=== PATIENT | female | born 1935 | race Caucasian/White ===

== ENCOUNTER 2019-10-10 09:03 | Outpatient (CLI) | payer MEDICARE, MEDICAID ==
--- NOTE | 2019-10-10 10:50 | MRI ---
MRI LUMBAR SPINE NONCONTRAST: DATE: 10/10/2019 HISTORY: 84-year-old female with chronic low back pain and bilateral lumbar radiculopathy, including left scia zofia. COMPARISON: None available FINDINGS: For the purposes of this report, it will be assumed that there are 5 lumbar-type vertebrae. Vertebral body heights are maintained. No major bone marrow signal abnormality identified. Conus medullaris terminates at L1. There is levos coliosis. This results in asymmetrically greater degree of degenerative changes on the concave sides of the curvature, which would be on the right at L2-3 and L3-4, and on the left side of the cou nter curvature at L4-5. T12-L1:Mild disc bulge. Disc space maintained. No high-grade neural foraminal stenosis or high-grade central stenosis. L1-2:Disc space maintained. Diffuse disc bulge. No high-grade neural foraminal stenosis. Mild ligamen rachele flavum thickening. Mild central stenosis. L2-3:Prominent diffuse disc bulge. Moderate to severe right neural foraminal stenosis. Mild to modera te left neural foraminal stenosis. Moderate ligamentum flavum thickening. Moderate to severe central spinal canal stenosis. Right-sided disc space narrowing. L3-4:Severe right facet DJD. Moderate to severe left facet DJD. These result in mild grade 1 anteroli sthesis of L3 on L4. Right-sided disc space narrowing. Large diffuse disc bulge, asymmetrically larger on the right side than left. Severe central spinal canal stenosis. Obliteration of CSF signal. Crowding of cauda equina. 1 x 1 x 0.5 cm right-sided synovial cyst further exacerbates the already very severely stenotic right lateral recess, contributing to right L4 nerve root compression. L4-5:Mild to moderate right facet DJD. Severe left facet DJD. Grade 1 anterolisthesis of L4 on L5. Le ft-sided disc space narrowing. Diffuse disc bulge. No right neural foraminal stenosis. Moderate left neural foraminal stenosis. Severe right lateral recess stenosis with possible impingement on rig ht L5 nerve root. Moderate central spinal canal stenosis. L5-S1:Disc space maintained. Ankylosis of dysplastically large left L5 transverse process with left S 1 sacral ala. The status of the right L5 transverse process is unknown because the sagittal images do not reach far laterally enough on the right. No central or neural foraminal stenosis. Hypoplastic bilateral facet joints. IMPRESSION: 1) lumbosacral transitional vertebra. This is at least type III a on the left side. Status on the rig ht side is unknown. 2) high-grade lumbar spondylosis, with multilevel high-grade degenerative disc disease and multilevel high-grade facet osteoarthrosis. 3) levoscoliosis. 4) multilevel high-grade neural foraminal stenosis, worst on the right at L3-4 and on the left at L4- 5. 5) severe central spinal canal stenosis at L3-4. 6) grade 1 spondylolisthesis at L3-4 and L4-5 due to the facet osteoarthrosis.
== END 2019-10-10 09:04 | disposition home or self-care (01) ==
LOC: BICMRI 09:03
PROVIDERS: ATTEND Family Medicine
DX: M54.32 Sciatica, left side (principal); M54.31 Sciatica, right side; M51.36 Other intervertebral disc degeneration, lumbar region; M48.061 Spinal stenosis, lumbar region without neurogenic claudication; M43.16 Spondylolisthesis, lumbar region; M47.816 Spondylosis without myelopathy or radiculopathy, lumbar region; M41.9 Scoliosis, unspecified
CPT/HCPCS: 72148

== ENCOUNTER 2019-12-27 10:03 | Inpatient (IN) | payer MEDICARE, MEDICAID ==
[2019-12-26 10:10] VITALS: BMI 20.2
[~2019-12-27 10:03] MED LIST: Dexamethasone 20 MG/5 ML VIAL ONE; Esmolol 100 MG/10 ML VIAL ONE; Glycopyrrolate 0.2 MG/ML 5 ML SYRINGE ONE; Lidocaine 1% PF 5 ML VIAL ONE; Ondansetron PF 4 MG/2 ML Vial ONE; PHENYLEPHRINE-NS 100 MCG/ML 10 ML SYRINGE ONE; PROPOFOL 200 MG/20 ML VIAL ONE; Rocuronium Bromide 10 MG/ML (10ML VIAL) ONE; ePHEDrine/0.9% NaCl/PF SYRINGE 50 mg/10 ml ONE
[2019-12-27 11:51] LABS: Hemoglobin 12.7 g/dL (12.0-16.0); Mean Corpuscular HGB CONC 32.4 g/dL (32.0-36.0); Mean Corpuscular Hemoglobin 30.7 pg (27.0-31.0); Mean Corpuscular Volume 94.7 fL (78.0-98.0); Mean Platelet Volume 6.6 fL (7.4-10.4); Platelet Count 235 thou/uL (130-400); RBC Distribution Width 11.6 % (11.5-14.5); Red Blood Cell (RBC) Count 4.13 mill/uL (4.20-5.40); White Blood Cell (WBC) Count 8.6 thou/uL (4.8-10.8)
[2019-12-27 11:54] LABS: PTT 27.3 SEC (22.9-36.1); Prothrombin Time 12.9 SEC (12.0-14.7)
[2019-12-27 12:11] LABS: Anion Gap 11 mmol/L (10-20); BUN (Urea Nitrogen) 21 mg/dL (9.8-20.1); Calc. Creatinine Clearance 44 mL/min (70-130); Calcium 9.3 mg/dL (7.8-10.44); Carbon Dioxide 27 mmol/L (23-31); Chloride 99 mmol/L (98-107); Estimated GFR-MDRD 71; Glucose 106 mg/dL (83-110); Potassium 3.8 mmol/L (3.5-5.1); Sodium 133 mmol/L (136-145)
[2019-12-27] MEDS ORDERED: Fentanyl 100 MCG/2 ML VIAL ONE ×3 (12:43→16:28)
[2019-12-27] MEDS ORDERED: Thrombin 5000 UNITS/5 ML VIAL ONE (12:45)
[2019-12-27] MEDS ORDERED: Sodium Chloride 0.9% 10 ML ONE (12:45)
[2019-12-27] MEDS ORDERED: Phenylephrine HCL 10 MG/ML VIAL ONE (12:47)
[2019-12-27] MEDS ORDERED: Morphine Sulfate 2 MG/ML SYRINGE SLOW IVP PRN (15:21)
[2019-12-27] MEDS ORDERED: Promethazine HCl 25 MG/ML VIAL IM PRN (15:21)
[2019-12-27] MEDS ORDERED: Ondansetron HCl/PF 4 MG/2 ML Vial IVP PRN (15:21)
[2019-12-27] MEDS ORDERED: PACU-Morphine 4MG/ML VIAL SLOW IVP PRN (15:21)
[2019-12-27] MEDS ORDERED: Bisacodyl 10 MG SUPP PR PRN (15:30)
[2019-12-27] MEDS ORDERED: Ondansetron PF 4 MG/2 ML Vial IVP PRN (15:30)
[2019-12-27] MEDS ORDERED: Fleet Enema 133 ML BOT PR PRN (15:30)
[2019-12-27] MEDS ORDERED: Acetaminophen 325 MG TAB PO PRN (15:30)
[2019-12-27] MEDS ORDERED: Mag-Al 1200 mg/1200 mg/30 ML UDCUP PO PRN (15:30)
[2019-12-27] MEDS ORDERED: CEFAZOLIN 2 GM in Premix Bag 1 BAG IVPB SCH (17:00)
[2019-12-27] MEDS: Morphine 2 MG/ML SYRINGE SLOW IVP PRN (17:32)
[2019-12-27] MEDS: Sodium Chloride 0.9% 1,000 ML IV SCH (17:41)
[2019-12-27] MEDS: Atorvastatin Calcium 10 MG TAB PO SCH (19:35)
[2019-12-27] MEDS: HYDROcodone/Acetaminophen 7.5/325 mg Tablet PO PRN (19:35)
[2019-12-27] MEDS: Benztropine 1 MG TAB PO SCH (19:35)
[2019-12-27] MEDS: CEFAZOLIN 2 GM in Premix Bag 1 BAG IVPB SCH (20:40)
[2019-12-27] MEDS: tiZANidine HCl 4 MG TAB PO PRN (21:45)
[2019-12-28] MEDS: HYDROcodone/Acetaminophen 7.5/325 mg Tablet PO PRN ×4 (04:39→21:06)
[2019-12-28] MEDS: CEFAZOLIN 2 GM in Premix Bag 1 BAG IVPB SCH ×3 (04:40→20:04)
[2019-12-28] MEDS: tiZANidine HCl 4 MG TAB PO PRN ×2 (05:47→15:38)
[2019-12-28] MEDS: Sodium Chloride 0.9% 1,000 ML IV SCH ×2 (05:54→15:38)
--- NOTE | 2019-12-28 08:14 | OP ---
DATE OF PROCEDURE: 12/27/2019 LOCATION: OR 12. WOUND CLASSIFICATION: Type 1 wound. POST HOLE DIGGER: You Pierce PA-C PREPROCEDURE DIAGNOSES: Multilevel lumbar stenosis, lumbar synovial cyst, lumbar spondylolisthesis, and far-lateral disk extrusion. POSTPROCEDURE DIAGNOSES: Multilevel lumbar stenosis, lumbar synovial cyst, lumbar spondylolisthesis, and far-lateral disk extrusion. PROCEDURES PERFORMED: 1. L2-L3 and L4-L5 laminectomies, partial facetectomies, and foraminotomies. 2. Left L3-L4 hemilaminotomy and foraminotomy for decompression of the nerve roots. 3. Right L3-L4 synovial cyst resection. 4. Right L3-L4 trans facet lateral diskectomy for decompression of the exiting left L3 nerve root. 5. L3-L4 in-situ fusion posterolaterally with local bone autograft obtained from the same incision and allograft to treat spondylolisthesis. 6. Use of operative microscope for microdissection. DESCRIPTION OF PROCEDURE: After informed consent was obtained from the patient, the patient was brought to the OR. Proper patient, pause, and identification were carried out. She was placed under excellent general endotracheal anesthesia. After informed consent, she was placed prone on the OR table. All appropriate points were padded. We identified the L2-L3 and L4-L5 dorsal spines. Linear hernando was made over this area. This region was sterilely cleansed, prepared, and draped. Proper patient, pause, and identification were carried out. The wound was then opened with combination of sharp, monopolar, and blunt dissection. The L2-L3 and L4-L5 lamina and spinous process were exposed. We then performed L2-L3 and L4-L5 laminectomies, partial facetectomies, and foraminotomies. We then did a left L3-L4 hemilaminotomy with the microscope and right L3-L4 synovial cyst resection. We then worked in a trans facet manner. The right L3-L4 disk space removed. Disk material that was extruded. We then posterolaterally placed local bone autograft obtained from same incision and allograft to treat the spondylolisthesis. Copious irrigation occurred throughout as did maximizing hemostasis. The wound was closed in anatomic layers. The patient emerged from anesthesia. Job ID: [id number]
[2019-12-28] MEDS: Amlodipine 5 MG TAB PO SCH (08:49)
[2019-12-28] MEDS: Benztropine 1 MG TAB PO SCH ×2 (08:50→20:03)
--- NOTE | 2019-12-28 11:17 | PRG ---
DATE OF SERVICE: 12/28/2019 Ms. Sheth is postoperative day 1 from L2 through L5 laminectomy, synovial cyst resection, right L3 lateral diskectomy and in-situ fusion L3-L4 spondylolisthesis. She states her leg pain has significantly improved. She is significantly deconditioned and has a resting tremor. She does bend both knees up with good activation of all of her myotomes in the lumbar spine. She needs inpatient rehab and the appropriate consultation has been placed. Job ID: [id number]
[2019-12-28] MEDS: Acetaminophen/Codeine 30-300mg Tablet PO PRN ×2 (11:57→22:30)
[2019-12-28] MEDS: Atorvastatin Calcium 10 MG TAB PO SCH (20:04)
[2019-12-28] MEDS: Morphine 2 MG/ML SYRINGE SLOW IVP PRN (22:31)
[2019-12-29] MEDS: tiZANidine HCl 4 MG TAB PO PRN ×2 (00:01→18:30)
[2019-12-29] MEDS: CEFAZOLIN 2 GM in Premix Bag 1 BAG IVPB SCH ×3 (04:19→20:20)
[2019-12-29] MEDS: HYDROcodone/Acetaminophen 7.5/325 mg Tablet PO PRN ×3 (04:21→17:56)
[2019-12-29] MEDS: Sodium Chloride 0.9% 1,000 ML IV SCH ×2 (07:48→21:58)
[2019-12-29] MEDS: Amlodipine 5 MG TAB PO SCH (08:13)
[2019-12-29] MEDS: Benztropine 1 MG TAB PO SCH ×2 (08:14→20:19)
--- NOTE | 2019-12-29 08:33 | PRG ---
DATE OF SERVICE: 12/29/2019 Ms. Sheth is on the second day of her hospital, stay status post laminectomy and decompression with Dr. Echevarria. We are awaiting on Rehab consultation. The patient sitting on the bedside commode and in only mild discomfort. We will call back this afternoon as Rehab and PT/OT are supposed to provide recommendations. We will try to see if we can transition her at some point this weekend though only would anticipate likely Tuesday or Tuesday before she will be able to go . Job ID: [id number]
[2019-12-29] MEDS: Acetaminophen/Codeine 30-300mg Tablet PO PRN ×3 (12:09→21:32)
[2019-12-29] MEDS: Atorvastatin Calcium 10 MG TAB PO SCH (20:19)
--- NOTE | 2019-12-29 20:30 | PRG ---
DATE OF SERVICE: 12/29/2019 SUBJECTIVE: Ms. Sheth continues to recover from her lumbar spine decompression procedure. She is fully mobilizing with less pain. Plan is to move toward inpatient rehab this next week, likely Tuesday or Tuesday. Job ID: [id number]
[2019-12-30] MEDS: tiZANidine HCl 4 MG TAB PO PRN (03:06)
[2019-12-30] MEDS: HYDROcodone/Acetaminophen 7.5/325 mg Tablet PO PRN ×3 (04:17→17:08)
[2019-12-30] MEDS: Benztropine 1 MG TAB PO SCH ×2 (09:48→20:03)
[2019-12-30] MEDS: Amlodipine 5 MG TAB PO SCH (09:48)
[2019-12-30] MEDS: Sodium Chloride 0.9% 1,000 ML IV SCH ×2 (12:28→23:34)
[2019-12-30] MEDS: traMADol HCl 50 MG TAB PO PRN (20:03)
[2019-12-30] MEDS: Atorvastatin Calcium 10 MG TAB PO SCH (20:04)
--- NOTE | 2019-12-31 00:06 | EKG ---
Test Reason : PREOP Blood Pressure : / mmHG Vent. Rate : 077 BPM Atrial Rate : 077 BPM P-R Int : 186 ms QRS Dur : 086 ms QT Int : 356 ms P-R-T Axes : 075 082 071 degrees QTc Int : 402 ms Sinus rhythm with occasional Premature ventricular complexes Otherwise normal ECG No previous ECGs available Confirmed by Fam HAYES ([id number]) on 12/31/2019 12:06:31 AM Referred By: MEME Confirmed By:Fam HAYES
[2019-12-31] MEDS: HYDROcodone/Acetaminophen 7.5/325 mg Tablet PO PRN ×3 (05:52→17:47)
[2019-12-31] MEDS: Sodium Chloride 0.9% 1,000 ML IV SCH (08:00)
[2019-12-31] MEDS: Amlodipine 5 MG TAB PO SCH (09:42)
[2019-12-31] MEDS: Benztropine 1 MG TAB PO SCH ×2 (09:43→20:13)
[2019-12-31] MEDS: tiZANidine HCl 4 MG TAB PO PRN ×2 (14:01→20:13)
[2019-12-31] MEDS: Atorvastatin Calcium 10 MG TAB PO SCH (20:13)
[2019-12-31] MEDS: traMADol HCl 50 MG TAB PO PRN (20:13)
[2020-01-01] MEDS: Sodium Chloride 0.9% 1,000 ML IV SCH ×2 (02:23→14:14)
[2020-01-01] MEDS: traMADol HCl 50 MG TAB PO PRN ×2 (05:10→16:12)
[2020-01-01] MEDS: tiZANidine HCl 4 MG TAB PO PRN ×2 (05:10→16:13)
[2020-01-01] MEDS: Benztropine 1 MG TAB PO SCH ×2 (09:38→20:18)
[2020-01-01] MEDS: HYDROcodone/Acetaminophen 7.5/325 mg Tablet PO PRN ×2 (09:38→20:19)
[2020-01-01] MEDS: Amlodipine 5 MG TAB PO SCH (09:38)
--- NOTE | 2020-01-01 10:56 | PRG ---
DATE OF SERVICE: 01/01/2020 This is You Pirece PA-C dictating a report for Jose Echevarria MD. Ms. Sheth is postoperative day #5, having undergone multilevel lumbar laminectomies with facet cyst removal and diskectomy. Overall, the patient is doing well. She feels as though, however, her right knee is occasionally giving way with walking, so this is limited her mobility. She does, however, deny leg pain and feels as though overall her legs are stronger now compared to what they were before surgery. She states she feels as though she is having urinary retention as well as constipation, so we will bladder scan her, although she has been urinating. We will also work on bowel movements for the patient. I have initiated the trauma bowel regimen to help with a more aggressive bowel regimen. She may continue work with therapies. She remains with excellent strength in the bilateral lower extremities with intact sensation to light touch. We will work on inpatient rehab placement, but overall the patient is doing well. Job ID: [id number]
[2020-01-01] MEDS: Morphine 2 MG/ML SYRINGE SLOW IVP PRN (11:43)
[2020-01-01] MEDS: Milk Of Magnesia 30 ML UDCUP PO PRN (11:43)
[2020-01-01] MEDS: Senokot S 8.6-50 MG TAB PO SCH (20:19)
[2020-01-01] MEDS: Atorvastatin Calcium 10 MG TAB PO SCH (20:19)
[2020-01-02] MEDS: tiZANidine HCl 4 MG TAB PO PRN ×2 (00:31→11:49)
[2020-01-02] MEDS: Morphine 2 MG/ML SYRINGE SLOW IVP PRN (00:31)
[2020-01-02] MEDS: traMADol HCl 50 MG TAB PO PRN ×2 (01:26→08:07)
[2020-01-02] MEDS: HYDROcodone/Acetaminophen 7.5/325 mg Tablet PO PRN ×3 (05:19→13:31)
[2020-01-02] MEDS: Sodium Chloride 0.9% 1,000 ML IV SCH (05:33)
[2020-01-02] MEDS: Amlodipine 5 MG TAB PO SCH (08:05)
[2020-01-02] MEDS: Benztropine 1 MG TAB PO SCH (08:05)
[2020-01-02] MEDS: Senokot S 8.6-50 MG TAB PO SCH (08:05)
[2020-01-02] MEDS: Milk Of Magnesia 30 ML UDCUP PO PRN (13:31)
[2020-01-02] MEDS: Acetaminophen/Codeine 30-300mg Tablet PO PRN (15:31)
[2020-01-02 16:16] VITALS: BP 117/68; TEMP 98.5
--- NOTE | 2020-01-02 20:01 | PRG ---
DATE OF SERVICE: This is You Pierce PA-C dictating a report for Jose Echevarria MD. Postoperative recheck: Ms. Sheth is now 6 weeks postop having undergone multilevel lumbar laminectomies. Her heart rate has been a little elevated as well as her blood pressure. She is afebrile. She states that she occasionally has some right buttock and posterior thigh pain, but overall this is improving. She has had a little bit of a bowel movement and this has improved her pain and her overall disposition. She has been urinating, though has some 4-hour bladder checks. She has been walking with therapies and has some giveaway weakness into the right leg. She overall feels as though she is improving. She has good strength in the bilateral lower extremities with intact sensation to light touch throughout. There is resting tremor in all the extremities. Her incision appears to be healing well. Although there is drainage on the dressings, it appears to be dry and this has been from the surgery. There is no active drainage and I have asked the nursing staff to re-dress the incision for us. She is ready for discharge to long term facility as her insurance denied the patient rehab and we will await placement. Please call with any changes in patient's neurologic status. Job ID: [id number]
== END 2020-01-02 16:34 | disposition swing bed (61) | DRG 460 ==
LOC: SURG A 10:45
PROVIDERS: ADMIT Surgery; ATTEND Surgery
PROC: 0SG0071 Fusion of Lumbar Vertebral Joint with Autologous Tissue Substitute, Posterior Approach, Posterior Column, Open Approach (ICD-10-PCS; principal; 2019-12-27)
PROC: 01NB0ZZ Release Lumbar Nerve, Open Approach (ICD-10-PCS; 2019-12-27)
PROC: 0ST20ZZ Resection of Lumbar Vertebral Disc, Open Approach (ICD-10-PCS; 2019-12-27)
DX: M48.062 Spinal stenosis, lumbar region with neurogenic claudication (principal); M71.30 Other bursal cyst, unspecified site; M51.26 Other intervertebral disc displacement, lumbar region; K59.00 Constipation, unspecified; I10 Essential (primary) hypertension; E78.5 Hyperlipidemia, unspecified; F41.9 Anxiety disorder, unspecified; Z98.41 Cataract extraction status, right eye; M43.16 Spondylolisthesis, lumbar region
CPT/HCPCS: 36415; 76000; 80048; 85027; 85610; 85730; 93005; 93010; J0690; J1100; J2001; J2270; J2370; J2405; J2704; J3010; J3370; J3490

== ENCOUNTER 2021-09-28 20:18 | Inpatient (IN) | payer MEDICARE, MEDICAID ==
[2021-09-29 05:19] LABS: #Eosinphils 0.2 thou/uL (0.0-0.7); #Monocytes 0.9 thou/uL (0.11-0.59); #Neutrophils 6.1 thou/uL (1.40-6.50); %Basophils 0.2 % (0.0-1.0); %Eosinophils 2.3 % (0.0-10.0); %Lymphocytes 12.3 % (21.0-51.0); %Neutrophils 74.2 % (42.0-75.0); Hemoglobin 10.7 g/dL (12.0-16.0); Mean Corpuscular HGB CONC 32.6 g/dL (32.0-36.0); Mean Corpuscular Hemoglobin 29.6 pg (27.0-31.0); Mean Corpuscular Volume 90.7 fL (78.0-98.0); Mean Platelet Volume 6.1 fL (7.4-10.4); Platelet Count 382 thou/uL (130-400); RBC Distribution Width 12.4 % (11.5-14.5); Red Blood Cell (RBC) Count 3.62 mill/uL (4.20-5.40); White Blood Cell (WBC) Count 8.3 thou/uL (4.8-10.8)
[2021-09-29 05:40] LABS: ALT (SGPT) 12 U/L (8-55); AST (SGOT) 18 U/L (5-34); Albumin 2.5 g/dL (3.4-4.8); Alkaline Phosphatase 60 U/L (40-110); Anion Gap 12 mmol/L (10-20); BUN (Urea Nitrogen) 21 mg/dL (9.8-20.1); Bilirubin, Total 0.2 mg/dL (0.2-1.2); Calc. Creatinine Clearance 59 mL/min (70-130); Calcium 8.1 mg/dL (7.8-10.44); Carbon Dioxide 20 mmol/L (23-31); Chloride 102 mmol/L (98-107); Globulin 2.3 g/dL (2.4-3.5); Glucose 84 mg/dL (83-110); Potassium 4.3 mmol/L (3.5-5.1); Protein, Total 4.8 g/dL (5.8-8.1); Sodium 130 mmol/L (136-145)
[2021-09-29] MEDS: Dextrose 5% in Water 1,000 ML IV SCH (11:50)
[2021-09-29 13:56] LABS: HBCM Index 0.07 S/CO (0-0.79); HBSAg Index 0.23 S/CO (0-0.99); Hep A IgM AB Non-Reactive (NonReactive); Hep A IgM S/CO 0.09 S/CO (0-0.79); Hep B Surf Ag Non-Reactive S/CO (NonReactive); Hep C IgG Ab Non-Reactive (NonReactive); Hep C Index 0.06 S/CO (0-0.79); Hepatitis B Core IgM Abs Non-Reactive (NonReactive)
[2021-09-29] MEDS ORDERED: Sodium Bicarbonate 2.5 MEQ/5 ML VIAL ONE (14:19)
[2021-09-29] MEDS ORDERED: Lidocaine 1% PF 5 ML VIAL ONE (14:19)
[2021-09-29 19:44] LABS: RBC Count-Automated (BF) 1852 /cu.mm; WBC/Nucleated-Auto (BF) 763 /cu.mm
[2021-09-29 19:51] LABS: BF Color Yellow; Body Fluid Source Ascites Body Fluid; Clarity Cloudy/Turbid (Clear); Tube # EDTA
[2021-09-29 19:55] LABS: BF Segmented Neutrophils 8 %; Cell Count Non Hematic 59 %; Lymphocytes 32 %
[2021-09-30] MEDS: Dextrose 5% in Water 1,000 ML IV SCH ×2 (01:14→11:53)
[2021-09-30 06:37] LABS: #Eosinphils 0.3 thou/uL (0.0-0.7); #Lymphocytes 1.1 thou/uL (1.20-3.40); #Monocytes 0.9 thou/uL (0.11-0.59); #Neutrophils 4.8 thou/uL (1.40-6.50); %Basophils 0.6 % (0.0-1.0); %Eosinophils 4.4 % (0.0-10.0); %Lymphocytes 14.9 % (21.0-51.0); %Neutrophils 67.2 % (42.0-75.0); Hemoglobin 10.5 g/dL (12.0-16.0); Mean Corpuscular HGB CONC 33.5 g/dL (32.0-36.0); Mean Corpuscular Hemoglobin 29.9 pg (27.0-31.0); Mean Corpuscular Volume 89.3 fL (78.0-98.0); Platelet Count 397 thou/uL (130-400); RBC Distribution Width 12.5 % (11.5-14.5); Red Blood Cell (RBC) Count 3.49 mill/uL (4.20-5.40); White Blood Cell (WBC) Count 7.1 thou/uL (4.8-10.8)
[2021-09-30 06:58] LABS: Anion Gap 11 mmol/L (10-20); BUN (Urea Nitrogen) 13 mg/dL (9.8-20.1); Calc. Creatinine Clearance 51 mL/min (70-130); Calcium 7.7 mg/dL (7.8-10.44); Carbon Dioxide 21 mmol/L (23-31); Chloride 99 mmol/L (98-107); Glucose 113 mg/dL (83-110); Potassium 4.1 mmol/L (3.5-5.1); Sodium 127 mmol/L (136-145)
[2021-09-30] MEDS: Enoxaparin Sodium 40 MG/0.4 ML SYRINGE SC SCH (08:29)
[2021-10-01] MEDS: Dextrose 5% in Water 1,000 ML IV SCH ×2 (01:26→13:51)
[2021-10-01 06:29] LABS: #Eosinphils 0.1 thou/uL (0.0-0.7); #Monocytes 1.2 thou/uL (0.11-0.59); #Neutrophils 7.1 thou/uL (1.40-6.50); %Basophils 0.1 % (0.0-1.0); %Eosinophils 1.1 % (0.0-10.0); %Lymphocytes 11.1 % (21.0-51.0); %Monocytes 12.3 % (0.0-10.0); %Neutrophils 75.4 % (42.0-75.0); Hemoglobin 11.9 g/dL (12.0-16.0); Mean Corpuscular Hemoglobin 29.5 pg (27.0-31.0); Mean Corpuscular Volume 89.6 fL (78.0-98.0); Mean Platelet Volume 5.8 fL (7.4-10.4); Platelet Count 425 thou/uL (130-400); RBC Distribution Width 12.4 % (11.5-14.5); Red Blood Cell (RBC) Count 4.02 mill/uL (4.20-5.40); White Blood Cell (WBC) Count 9.4 thou/uL (4.8-10.8)
[2021-10-01 06:48] LABS: Anion Gap 11 mmol/L (10-20); BUN (Urea Nitrogen) 9 mg/dL (9.8-20.1); Calc. Creatinine Clearance 53 mL/min (70-130); Carbon Dioxide 22 mmol/L (23-31); Chloride 93 mmol/L (98-107); Glucose 137 mg/dL (83-110); Potassium 3.8 mmol/L (3.5-5.1); Sodium 122 mmol/L (136-145)
[2021-10-01] MEDS: Enoxaparin Sodium 40 MG/0.4 ML SYRINGE SC SCH (08:08)
[2021-10-01] MEDS ORDERED: Ondansetron PF 4 MG/2 ML Vial IVP PRN (08:29)
[2021-10-01] MEDS: Benztropine 1 MG TAB PO SCH ×2 (09:22→20:22)
[2021-10-01] MEDS: Docusate 100 MG CAP PO SCH ×2 (09:25→20:22)
[2021-10-01] MEDS: Multivitamin W/ Minerals 1 TAB PO SCH (09:26)
[2021-10-01 12:40] LABS: A/G Ratio 0.7 (0.7-1.7); Alpha 1 0.4 g/dL (0.0-0.4); Alpha 2 0.9 g/dL (0.4-1.0); Beta 0.8 g/dL (0.7-1.3); Gamma 0.7 g/dL (0.4-1.8); Globulin, Total 2.8 g/dL (2.2-3.9); M-Spike 0.1 g/dL (Not Observed)
[2021-10-01 15:13] LABS: Smooth Muscle Total ABS 4 Units (0-19)
[2021-10-01] MEDS: Simvastatin 5 MG TAB PO SCH (20:22)
[2021-10-01] MEDS: Amlodipine 10 MG TAB PO SCH (20:22)
[2021-10-02] MEDS: Dextrose 5% in Water 1,000 ML IV SCH (03:35)
[2021-10-02 06:10] LABS: #Eosinphils 0.3 thou/uL (0.0-0.7); #Lymphocytes 1.2 thou/uL (1.20-3.40); #Neutrophils 4.9 thou/uL (1.40-6.50); %Basophils 0.2 % (0.0-1.0); %Lymphocytes 15.8 % (21.0-51.0); %Monocytes 13.1 % (0.0-10.0); %Neutrophils 66.9 % (42.0-75.0); Hemoglobin 10.2 g/dL (12.0-16.0); Mean Corpuscular HGB CONC 34.1 g/dL (32.0-36.0); Mean Platelet Volume 5.8 fL (7.4-10.4); Platelet Count 403 thou/uL (130-400); RBC Distribution Width 12.2 % (11.5-14.5); Red Blood Cell (RBC) Count 3.39 mill/uL (4.20-5.40); White Blood Cell (WBC) Count 7.3 thou/uL (4.8-10.8)
[2021-10-02 06:33] LABS: Anion Gap 9 mmol/L (10-20); BUN (Urea Nitrogen) 6 mg/dL (9.8-20.1); Calc. Creatinine Clearance 57 mL/min (70-130); Calcium 7.5 mg/dL (7.8-10.44); Carbon Dioxide 22 mmol/L (23-31); Chloride 93 mmol/L (98-107); Glucose 119 mg/dL (83-110); Potassium 3.7 mmol/L (3.5-5.1); Sodium 120 mmol/L (136-145)
[2021-10-02] MEDS: Docusate 100 MG CAP PO SCH ×2 (08:05→21:00)
[2021-10-02] MEDS: Benztropine 1 MG TAB PO SCH ×2 (08:05→20:54)
[2021-10-02] MEDS: Enoxaparin Sodium 40 MG/0.4 ML SYRINGE SC SCH (08:09)
[2021-10-02] MEDS: Multivitamin W/ Minerals 1 TAB PO SCH (08:09)
[2021-10-02 16:10] LABS: Albumin-Ur 7.6 % (.); Alpha 1 - Ur 2.7 % (.); Alpha 2 - Ur 15.2 % (.); Beta-Ur 33.1 % (.); Gamma-Ur 41.4 % (.); M-Spike,% 11.9 % (Not Observed); Protein, Urine 18.9 mg/dL (Not Estab.)
[2021-10-02] MEDS: Acetaminophen 325 MG TAB PO PRN (17:10)
[2021-10-02] MEDS: Amlodipine 10 MG TAB PO SCH (20:53)
[2021-10-02] MEDS: Simvastatin 5 MG TAB PO SCH (20:54)
[2021-10-03] MEDS: Docusate 100 MG CAP PO SCH ×2 (08:31→21:22)
[2021-10-03] MEDS: Multivitamin W/ Minerals 1 TAB PO SCH (08:31)
[2021-10-03] MEDS: Benztropine 1 MG TAB PO SCH ×2 (08:31→20:51)
[2021-10-03] MEDS: Enoxaparin Sodium 40 MG/0.4 ML SYRINGE SC SCH (08:32)
[2021-10-03] MEDS: Dextrose 5 % And 0.9 % NaCl 1,000 ML IV SCH (13:46)
[2021-10-03 15:05] LABS: ANA Symphony (Qualitative) Negative (Negative); ANA Symphony (Quantitative) 0.2 Ratio (< 0.7 Negative); EliA Vaculitis New Method **** NEW METHOD ****; Mitochondrial Ab 0.9 U/mL (<4 Negative); dsDNA IgG Antibody 0.7 IU/mL (<10 Negative)
[2021-10-03] MEDS: Simvastatin 5 MG TAB PO SCH (20:51)
[2021-10-03] MEDS: Amlodipine 10 MG TAB PO SCH (20:51)
[2021-10-04] MEDS: Dextrose 5 % And 0.9 % NaCl 1,000 ML IV SCH (05:59)
[2021-10-04 06:35] LABS: #Eosinphils 0.3 thou/uL (0.0-0.7); #Lymphocytes 1.2 thou/uL (1.20-3.40); #Neutrophils 4.9 thou/uL (1.40-6.50); %Basophils 0.4 % (0.0-1.0); %Eosinophils 4.6 % (0.0-10.0); %Lymphocytes 16.4 % (21.0-51.0); %Monocytes 12.9 % (0.0-10.0); %Neutrophils 65.7 % (42.0-75.0); Mean Corpuscular HGB CONC 32.6 g/dL (32.0-36.0); Mean Corpuscular Hemoglobin 29.1 pg (27.0-31.0); Mean Corpuscular Volume 89.4 fL (78.0-98.0); Mean Platelet Volume 5.9 fL (7.4-10.4); Platelet Count 423 thou/uL (130-400); RBC Distribution Width 12.5 % (11.5-14.5); Red Blood Cell (RBC) Count 3.78 mill/uL (4.20-5.40); White Blood Cell (WBC) Count 7.4 thou/uL (4.8-10.8)
[2021-10-04 06:58] LABS: ALT (SGPT) 26 U/L (8-55); AST (SGOT) 35 U/L (5-34); Albumin 2.3 g/dL (3.4-4.8); Alkaline Phosphatase 79 U/L (40-110); Anion Gap 10 mmol/L (10-20); BUN (Urea Nitrogen) 7 mg/dL (9.8-20.1); Bilirubin, Total 0.2 mg/dL (0.2-1.2); Calc. Creatinine Clearance 50 mL/min (70-130); Carbon Dioxide 23 mmol/L (23-31); Chloride 97 mmol/L (98-107); Globulin 2.1 g/dL (2.4-3.5); Glucose 119 mg/dL (83-110); Potassium 4.2 mmol/L (3.5-5.1); Protein, Total 4.4 g/dL (5.8-8.1); Sodium 126 mmol/L (136-145)
[2021-10-04] MEDS: Benztropine 1 MG TAB PO SCH ×2 (08:01→20:52)
[2021-10-04] MEDS: Docusate 100 MG CAP PO SCH ×2 (08:02→21:34)
[2021-10-04] MEDS: Multivitamin W/ Minerals 1 TAB PO SCH (08:02)
[2021-10-04] MEDS: Enoxaparin Sodium 40 MG/0.4 ML SYRINGE SC SCH (08:02)
[2021-10-04] MEDS ORDERED: Magnevist 469MG/ML 20 ML VIAL ONE (13:38)
[2021-10-04] MEDS: Amlodipine 10 MG TAB PO SCH (20:51)
[2021-10-04] MEDS: Simvastatin 5 MG TAB PO SCH (20:52)
[2021-10-05] MEDS: Dextrose 5 % And 0.9 % NaCl 1,000 ML IV SCH (01:42)
[2021-10-05] MEDS: Docusate 100 MG CAP PO SCH ×2 (09:56→21:27)
[2021-10-05] MEDS: Multivitamin W/ Minerals 1 TAB PO SCH (09:57)
[2021-10-05] MEDS: Benztropine 1 MG TAB PO SCH ×2 (09:57→21:27)
[2021-10-05] MEDS: Enoxaparin Sodium 40 MG/0.4 ML SYRINGE SC SCH (09:57)
[2021-10-05] MEDS: Amlodipine 10 MG TAB PO SCH (21:26)
[2021-10-05] MEDS: Simvastatin 5 MG TAB PO SCH (21:27)
[2021-10-06] MEDS: Dextrose 5 % And 0.9 % NaCl 1,000 ML IV SCH (01:06)
[2021-10-06 07:07] LABS: Anion Gap 8 mmol/L (10-20); BUN (Urea Nitrogen) 8 mg/dL (9.8-20.1); Calc. Creatinine Clearance 57 mL/min (70-130); Calcium 7.7 mg/dL (7.8-10.44); Carbon Dioxide 26 mmol/L (23-31); Chloride 98 mmol/L (98-107); Glucose 103 mg/dL (83-110); Potassium 4.1 mmol/L (3.5-5.1); Sodium 128 mmol/L (136-145)
[2021-10-06] MEDS: Docusate 100 MG CAP PO SCH (08:27)
[2021-10-06] MEDS: Benztropine 1 MG TAB PO SCH ×2 (08:27→21:13)
[2021-10-06] MEDS: Multivitamin W/ Minerals 1 TAB PO SCH (08:27)
[2021-10-06] MEDS: Enoxaparin Sodium 40 MG/0.4 ML SYRINGE SC SCH (08:27)
[2021-10-06] MEDS: Simvastatin 5 MG TAB PO SCH (21:13)
[2021-10-06] MEDS: Acetaminophen 325 MG TAB PO PRN (21:13)
[2021-10-06] MEDS: Amlodipine 10 MG TAB PO SCH (21:13)
[2021-10-07] MEDS: Enoxaparin Sodium 40 MG/0.4 ML SYRINGE SC SCH (08:19)
[2021-10-07] MEDS: Benztropine 1 MG TAB PO SCH ×2 (08:19→21:26)
[2021-10-07] MEDS: Multivitamin W/ Minerals 1 TAB PO SCH (08:19)
[2021-10-07] MEDS: Amlodipine 10 MG TAB PO SCH (21:26)
[2021-10-07] MEDS: Simvastatin 5 MG TAB PO SCH (21:26)
[2021-10-07] MEDS: Mirtazapine 15 MG TAB PO SCH (21:26)
[2021-10-08] MEDS: Multivitamin W/ Minerals 1 TAB PO SCH (08:20)
[2021-10-08] MEDS: Benztropine 1 MG TAB PO SCH ×2 (08:20→21:18)
[2021-10-08] MEDS: Enoxaparin Sodium 40 MG/0.4 ML SYRINGE SC SCH (08:21)
[2021-10-08] MEDS ORDERED: Lidocaine 1% PF 5 ML VIAL ONE (09:59)
[2021-10-08] MEDS ORDERED: Sodium Bicarbonate 2.5 MEQ/5 ML VIAL ONE (09:59)
[2021-10-08 11:00] VITALS: BMI 22.2
[2021-10-08] MEDS: Simvastatin 5 MG TAB PO SCH (21:18)
[2021-10-08] MEDS: Amlodipine 10 MG TAB PO SCH (21:18)
[2021-10-08] MEDS: Mirtazapine 15 MG TAB PO SCH (21:18)
[2021-10-09] MEDS: Benztropine 1 MG TAB PO SCH ×2 (08:28→20:49)
[2021-10-09] MEDS: Multivitamin W/ Minerals 1 TAB PO SCH (08:28)
[2021-10-09] MEDS: Enoxaparin Sodium 40 MG/0.4 ML SYRINGE SC SCH (08:28)
[2021-10-09] MEDS: Mirtazapine 15 MG TAB PO SCH (20:48)
[2021-10-09] MEDS: Simvastatin 5 MG TAB PO SCH (20:49)
[2021-10-09] MEDS: Amlodipine 10 MG TAB PO SCH (20:50)
[2021-10-10] MEDS: Benztropine 1 MG TAB PO SCH ×2 (08:55→20:42)
[2021-10-10] MEDS: Enoxaparin Sodium 40 MG/0.4 ML SYRINGE SC SCH (08:55)
[2021-10-10] MEDS: Multivitamin W/ Minerals 1 TAB PO SCH (08:55)
[2021-10-10] MEDS: Simvastatin 5 MG TAB PO SCH (20:42)
[2021-10-10] MEDS: Amlodipine 10 MG TAB PO SCH (20:42)
[2021-10-10] MEDS: Mirtazapine 15 MG TAB PO SCH (20:42)
[2021-10-11] MEDS: Multivitamin W/ Minerals 1 TAB PO SCH (08:39)
[2021-10-11] MEDS: Benztropine 1 MG TAB PO SCH ×2 (08:40→20:11)
[2021-10-11] MEDS: Enoxaparin Sodium 40 MG/0.4 ML SYRINGE SC SCH (08:41)
[2021-10-11] MEDS: Amlodipine 10 MG TAB PO SCH (20:11)
[2021-10-11] MEDS: Simvastatin 5 MG TAB PO SCH (20:11)
[2021-10-11] MEDS: Mirtazapine 15 MG TAB PO SCH (20:11)
[2021-10-12] MEDS: Benztropine 1 MG TAB PO SCH ×2 (08:57→20:20)
[2021-10-12] MEDS: Enoxaparin Sodium 40 MG/0.4 ML SYRINGE SC SCH (08:58)
[2021-10-12] MEDS: Multivitamin W/ Minerals 1 TAB PO SCH (08:58)
[2021-10-12 17:08] VITALS: TEMP 98.5
[2021-10-12] MEDS: Simvastatin 5 MG TAB PO SCH (20:20)
[2021-10-12] MEDS: Amlodipine 10 MG TAB PO SCH (20:21)
[2021-10-12] MEDS: Mirtazapine 15 MG TAB PO SCH (20:21)
[2021-10-13] MEDS: Multivitamin W/ Minerals 1 TAB PO SCH (08:16)
[2021-10-13] MEDS: Enoxaparin Sodium 40 MG/0.4 ML SYRINGE SC SCH (08:16)
[2021-10-13] MEDS: Benztropine 1 MG TAB PO SCH (08:16)
[2021-10-13 08:18] VITALS: BP 135/78
== END 2021-10-13 13:49 | DRG 755 ==
LOC: T4-B 20:18 → OBSVTOIN 09-29 11:22
PROVIDERS: ADMIT Internal Medicine; ATTEND Internal Medicine
PROC: 0W9G3ZZ Drainage of Peritoneal Cavity, Percutaneous Approach (ICD-10-PCS; principal; 2021-09-29)
DX: C56.9 Malignant neoplasm of unspecified ovary (principal); R18.0 Malignant ascites; E87.1 Hypo-osmolality and hyponatremia; E44.0 Moderate protein-calorie malnutrition; C79.82 Secondary malignant neoplasm of genital organs; C53.9 Malignant neoplasm of cervix uteri, unspecified; Z51.5 Encounter for palliative care; Z66 Do not resuscitate; I10 Essential (primary) hypertension; Z20.822 Contact with and (suspected) exposure to COVID-19; G51.0 Bell's palsy; M54.16 Radiculopathy, lumbar region; F01.50 Vascular dementia, unspecified severity, without behavioral disturbance, psychotic disturbance, mood disturbance, and anxiety; G31.84 Mild cognitive impairment of uncertain or unknown etiology; F41.1 Generalized anxiety disorder; E78.2 Mixed hyperlipidemia; Z79.899 Other long term (current) drug therapy; Z68.20 Body mass index [BMI] 20.0-20.9, adult
CPT/HCPCS: 36415; 36416; 49083; 72197; 76705; 76856; 80048; 80053; 80074; 82042; 82105; 83516; 83930; 83935; 84157; 84165; 84166; 84300; 85025; 85060; 86038; 86225; 86301; 86304; 87070; 87205; 88112; 88305; 88341; 88342; 88360; 89051; 93306; A9579; G0378; J1650; J2405; J7042; J7070